=== PATIENT | male | born 1965 | race Caucasian/White ===

== ENCOUNTER 2017-04-11 22:51 | Emergency (ER) | payer SELFPAY ==
[~2017-04-11] VITALS: Ht 182.9 cm; Wt 75.0 kg
[2017-04-12] MEDS ORDERED: COCAINE TOPICAL SOLN 4%, 4ML ONE (00:18)
[2017-04-12] MEDS ORDERED: COCAINE TOPICAL SOLN 4%, 4ML TP ONE (00:30)
[2017-04-12 00:34] LABS: ASPARTATE AMINO TRANSFERASE 64 U/L (15-37); BLOOD UREA NITROGEN 13 mg/dL (7-18)
[2017-04-12] MEDS ORDERED: POTASSIUM CHLORIDE 20 MEQ TAB.ER.PRT PO ONE (01:00)
[2017-04-12] MEDS ORDERED: POTASSIUM CHLORIDE 20 MEQ TAB.ER.PRT ONE (01:03)
[2017-04-12 01:05] VITALS: BP 125/79
== END 2017-04-12 02:26 | disposition home or self-care (01) ==
LOC: ED 23:59
DX: R04.0 Epistaxis (principal); E16.2 Hypoglycemia, unspecified; F17.200 Nicotine dependence, unspecified, uncomplicated
CPT/HCPCS: 36415; 80053; 80307; 85025; 85610; 85730; 99284